=== PATIENT | female | born 1975 | race African-American/Black ===

== ENCOUNTER 2021-11-05 09:34 | Emergency (ER) | payer OTHER, MEDICAID ==
[~2021-11-05] VITALS: Ht 175.3 cm; Wt 111.6 kg
[2021-11-05] MEDS ORDERED: ACETAMINOPHEN 650 mg PER 20.3 mL UD PO ONE (12:45)
[2021-11-05] MEDS ORDERED: ONDANSETRON HCL 4 MG/2 ML VIAL IV ONE (13:45)
[2021-11-05] MEDS ORDERED: SODIUM CHLORIDE 0.9% 1,000 ML IV ONE (13:45)
[2021-11-05 15:05] LABS: INR 1.09 (0.9-1.15)
[2021-11-05 16:22] VITALS: BP 125/87
[2021-11-05] MEDS ORDERED: RIV15T PO (16:28)
[2021-11-05] MEDS ORDERED: IOHEXOL 350 MG/ML 100ML IJ ONE (16:32)
[2021-11-05 16:46] LABS: Basophils # (auto) 0.1 10 ^3/uL (0-0.2); Basophils % (auto) 1.7 % (0.0-2.0); Eosinophils # (auto) 0 10 ^3/uL (0-0.8); Eosinophils % (auto) 1.3 % (0.0-7.0); Hematocrit 30.1 % (36.0-46.0); Hemoglobin 9.9 g/dL (12.2-16.2); Lymphocytes # (auto) 1.4 10 ^3/uL (0.4-5.4); Lymphocytes % (auto) 40.5 % (10.0-50.0); Mean Corpuscular Hemoglobin 27.4 pg (28.0-32.0); Mean Corpuscular Volume 83.2 fL (80.0-100.0); Monocytes # (auto) 0.2 10 ^3/uL (0-1.3); Neutrophils # (auto) 1.7 10 ^3/uL (1.6-8.6); Neutrophils % (auto) 49.5 % (37.0-80.0); Nucleated Red Blood Cells % 0.1 %; Red Blood Cells 3.61 10^6/uL (4.0-5.20); White Blood Cell 3.5 10^3/uL (4.4-10.8)
[2021-11-05 16:50] LABS: Red Cell Distribution Width 24.8 % (11.8-14.3)
[2021-11-05 17:10] LABS: Albumin 3.2 g/dL (3.4-5.0); Calcium 8.1 mg/dL (8.5-10.1); Potassium 4.6 mmol/L (3.5-5.1)
[2021-11-05 17:13] LABS: BUN/Creatinine Ratio 9.2; Bilirubin, Total 0.5 mg/dL (0.2-1.0); Total Protein 7.2 g/dL (6.4-8.2)
[2021-11-05] MEDS ORDERED: ACETAMINOPHEN 500 MG TAB PO ONE (17:30)
[2021-11-05] MEDS ORDERED: HYDR-4798 PO (18:33)
== END 2021-11-05 18:38 | disposition home or self-care (01) ==
LOC: ER 09:34
DX: S02.2XXA Fracture of nasal bones, initial encounter for closed fracture (principal); K76.0 Fatty (change of) liver, not elsewhere classified; N26.1 Atrophy of kidney (terminal); Z88.0 Allergy status to penicillin; Z90.49 Acquired absence of other specified parts of digestive tract; Z88.1 Allergy status to other antibiotic agents; W51.XXXA Accidental striking against or bumped into by another person, initial encounter; Y93.89 Activity, other specified; Y92.89 Other specified places as the place of occurrence of the external cause; Y99.8 Other external cause status
CPT/HCPCS: 36415; 70160; 70450; 71275; 80053; 85025; 85379; 85610; 96361; 96374; 99284; J2405; J7030; Q9967

== ENCOUNTER 2022-04-02 12:53 | Emergency (ER) | payer MEDICAID, OTHER ==
[~2022-04-02] VITALS: Ht 175.3 cm; Wt 109.0 kg
[~2022-04-02 12:53] MED LIST: HYDR-4798 PO; RIV15T PO
[2022-04-02 20:05] VITALS: BP 122/87
== END 2022-04-02 20:21 | disposition home or self-care (01) ==
LOC: ER 12:53
DX: R22.41 Localized swelling, mass and lump, right lower limb (principal)
CPT/HCPCS: 93971